=== PATIENT | male | born 2000 | race Caucasian/White ===

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

== ENCOUNTER 2020-06-15 14:47 | Emergency (ER) | payer OTHER ==
[~2020-06-15] VITALS: Ht 185.4 cm; Wt 62.8 kg
--- NOTE | 2020-06-15 15:57 | NUR ---
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
[2020-06-15 16:52] VITALS: BP 133/95
--- NOTE | 2020-06-15 16:53 | NUR ---
Pt without complaint. VS updated.
== END 2020-06-15 17:02 | disposition home or self-care (01) ==
LOC: ED 16:55
DX: J06.9 Acute upper respiratory infection, unspecified (principal); Z20.828 Contact with and (suspected) exposure to other viral communicable diseases; J45.909 Unspecified asthma, uncomplicated
CPT/HCPCS: 87635; 99283

== ENCOUNTER 2021-04-06 12:36 | Emergency (ER) | payer OTHER ==
[~2021-04-06] VITALS: Ht 185.4 cm; Wt 66.4 kg
--- NOTE | 2021-04-06 12:39 | NUR ---
MOTHER MARGARITA [phone]
[2021-04-06 13:35] LABS: BASOPHILS % (AUTO) 0 % (0-1); EOSINOPHILS % (AUTO) 3 % (1-7); LYMPHOCYTES % (AUTO) 17 % (22-44); MEAN CORPUSCULAR HEMOGLOBIN 30.9 pg (27.5-34.5); MEAN CORPUSCULAR HGB CONC 33.7 g/dL (33.2-36.2); MEAN PLATELET VOLUME 9.3 fL (7.4-10.4); MONOCYTES % (AUTO) 7 % (2-9); NEUTROPHILS % (AUTO) 72 % (42-75); PLATELET COUNT 196 x10^3/uL (130-400); RED BLOOD COUNT 5.12 x10^6/uL (4.38-5.82)
[2021-04-06 13:42] LABS: ALANINE AMINOTRANSFERASE 25 U/L (12-78); ALBUMIN 4.2 g/dL (3.4-5.0); ANION GAP 6 mmol/L (5-15); CALCIUM 9.6 mg/dL (8.5-10.1); CHLORIDE 106 mmol/L (98-107); CREATININE 0.92 mg/dL (0.7-1.3)
[2021-04-06 13:44] LABS: ALKALINE PHOSPHATASE 74 U/L (45-117); BILIRUBIN,TOTAL 0.6 mg/dL (0.2-1.0); TOTAL PROTEIN 7.8 g/dL (6.4-8.2)
[2021-04-06 14:58] VITALS: BP 115/71
--- NOTE | 2021-04-06 15:01 | NUR ---
PT AMBULATORY TO ROOM 1 W/ C/O LOWER BILAT ABD PAIN AND LUQ ABD PAIN X 4 WEEKS W/ NAUSEA. PT DENIES ANY ABD HX. PT RESTING ON GURNEY. NADN. MONITORS APPLIED. VSS. ERP DR. BADILLO AT BEDSIDE FOR EVAL.
== END 2021-04-06 15:13 | disposition home or self-care (01) ==
LOC: ED 15:05
DX: R10.33 Periumbilical pain (principal); R11.2 Nausea with vomiting, unspecified; R19.7 Diarrhea, unspecified
CPT/HCPCS: 36415; 74021; 80053; 83690; 85025; 99284